=== PATIENT | female | born 1930 | race Hispanic/Latino ===

== ENCOUNTER 2018-06-10 13:10 | Outpatient (CLI) | payer MEDICARE ==
--- NOTE | 2018-06-10 15:21 | XRay Report ---
CHEST TWO VIEWS: 06/10/18 13:10:00 CLINICAL: Chills with fever. COMPARISON: None FINDINGS: Normal heart and pulmonary vasculature. The lungs are normally expanded and clear. No airspace disease or pleural effusion. Mild osteopenia and mild degenerative change in the thoracic spine. Several old healed left posterior rib fractures IMPRESSION: No acute cardiopulmonary process.No pneumonia.
== END 2018-06-10 13:11 | disposition home or self-care (01) ==
LOC: SPVIMAG 13:10
PROVIDERS: ATTEND Internal Medicine
DX: R50.9 Fever, unspecified (principal); M47.894 Other spondylosis, thoracic region; M85.88 Other specified disorders of bone density and structure, other site
CPT/HCPCS: 71046